=== PATIENT | female | born 1940 | race Hispanic/Latino ===

== ENCOUNTER 2018-04-29 18:28 | Emergency (ER) | payer OTHER, MEDICARE ==
[~2018-04-29 18:28] MED LIST: ACET-2247 PO; AMLO2.5T3 PO; ASPI-1012 PO; ATOR10TA69 PO; CELE200 PO; CHOL100018 PO; FLUT16H NASAL; LEVO25TA54 PO; LOSA50TA25 PO; OXYC5 PO; PREG25 PO
[2018-04-29] MEDS ORDERED: TRAMADOL HCL 50 MG TABLET ONE (19:25)
[2018-04-29 19:46] LABS: BASOPHILS % (AUTO) 0.6 % (0.0-5.0); EOSINOPHILS % (AUTO) 0.3 % (0.0-8.0); HEMATOCRIT 41.4 % (36-48); LYMPHOCYTES % (AUTO) 22.6 % (21.0-51.0); MEAN CORPUSCULAR HEMOGLOBIN 29.6 pg (27.0-33.0); MEAN CORPUSCULAR HGB CONC 33.5 g/dL (32.0-36.0); MEAN CORPUSCULAR VOLUME 88.4 fL (79-99); MONOCYTES % (AUTO) 5.1 % (3.0-13.0); NEUTROPHILS % (AUTO) 71.4 % (40.0-77.0); PLATELET COUNT (AUTO) 205 K/uL (130-400); RED BLOOD CELL COUNT(AUTO) 4.68 MIL/uL (4.00-5.50); RED CELL DISTRIBUTION WIDTH 13.2 % (11.0-15.5); WHITE BLOOD COUNT (AUTO) 6.5 K/uL (4.8-10.8)
[2018-04-29] MEDS ORDERED: ACETAMINOPHEN EXTRA STRENGTH 500 MG TABLET ONE (19:48)
[2018-04-29 19:59] LABS: INR 0.92 (0.85-1.15); PARTIAL THROMBOPLASTIN TIME 26.6 SEC (26.3-35.5); PROTHROMBIN TIME 9.7 SEC (9.6-11.6)
[2018-04-29 20:02] LABS: CREATININE 0.8 mg/dL (0.5-1.5); POTASSIUM 3.8 mmol/L (3.5-5.1)
[2018-04-29 20:09] LABS: ALBUMIN 3.7 g/dL (3.5-5.0); BILIRUBIN,TOTAL 0.3 mg/dL (0.2-1.0); TOTAL PROTEIN, SERUM 7.9 g/dL (6.0-8.3)
== END 2018-04-29 21:57 | disposition home or self-care (01) ==
LOC: EDH 18:28
DX: M79.651 Pain in right thigh (principal); M19.90 Unspecified osteoarthritis, unspecified site; E78.5 Hyperlipidemia, unspecified; I10 Essential (primary) hypertension; Z88.6 Allergy status to analgesic agent; Z90.49 Acquired absence of other specified parts of digestive tract; Z90.710 Acquired absence of both cervix and uterus; Z98.890 Other specified postprocedural states
CPT/HCPCS: 36415; 73552; 80053; 85025; 85378; 85610; 85730; 93971

== ENCOUNTER 2019-10-05 16:45 | Inpatient (IN) | payer OTHER, MEDICARE ==
[~2019-10-05] VITALS: Ht 152.4 cm; Wt 59.0 kg
[~2019-10-05 16:45] MED LIST changes: -AMLO2.5T3 PO; +AMLO2.5T4 PO; -LOSA50TA25 PO; +LOSA50TA64 PO
[2019-10-05 17:48] LABS: BASOPHILS % (AUTO) 0.2 % (0.0-5.0); EOSINOPHILS % (AUTO) 0.1 % (0.0-8.0); HEMATOCRIT 35.2 % (36-48); LYMPHOCYTES % (AUTO) 17.3 % (21.0-51.0); MEAN CORPUSCULAR HEMOGLOBIN 29.2 pg (27.0-33.0); MEAN CORPUSCULAR VOLUME 88.7 fL (79-99); MONOCYTES % (AUTO) 5.6 % (3.0-13.0); NEUTROPHILS % (AUTO) 76.4 % (40.0-77.0); PLATELET COUNT (AUTO) 217 K/uL (130-400); RED BLOOD CELL COUNT(AUTO) 3.97 MIL/uL (4.00-5.50); RED CELL DISTRIBUTION WIDTH 12.9 % (11.0-15.5); WHITE BLOOD COUNT (AUTO) 11.6 K/uL (4.8-10.8)
[2019-10-05 17:58] LABS: CREATININE 0.9 mg/dL (0.5-1.5); POTASSIUM 3.7 mmol/L (3.5-5.1)
[2019-10-05 18:03] LABS: INR 0.88 (0.85-1.15); PARTIAL THROMBOPLASTIN TIME 22.2 SEC (26.3-35.5); PROTHROMBIN TIME 9.5 SEC (9.6-11.6)
[2019-10-05 18:04] LABS: ALBUMIN 3.4 g/dL (3.5-5.0); BILIRUBIN,TOTAL 0.3 mg/dL (0.2-1.0); TOTAL PROTEIN, SERUM 7.1 g/dL (6.0-8.3)
[2019-10-05] MEDS ORDERED: SODIUM CHLORIDE 0.9% 1000ML 1,000 ML IV ONE (18:14)
[2019-10-05] MEDS: SODIUM CHLORIDE 0.9% 1000ML 1,000 ML IV SCH (20:15)
[2019-10-05] MEDS ORDERED: HYDRALAZINE HCL 20 MG/ML VIAL IV PRN (20:15)
[2019-10-05] MEDS ORDERED: ACETAMINOPHEN 325 MG TAB PO PRN (20:15)
[2019-10-05] MEDS ORDERED: ONDANSETRON HCL 4 MG/2 ML VIAL IVP PRN (20:15)
[2019-10-05 20:27] VITALS: BP 147/63
--- NOTE | 2019-10-05 20:30 | NUR ---
RECEIVED PATIENT FROM [facility], REPORT FROM ASHWIN Garcia PT IS A 79 YR OLD FEMALE WITH C/O BLOODY STOOLS X 2 DAYS. STATES IT GOT GRADUALLY WORSE AND DECIDED TO COME TO ER. PT ORIENTED TO ROOM AND ENVIRONMENT, ASSESSMENT DOCUMENTED. CALL BEL PLACED WITHIN REACH. I INSTRUCTED PT TO CALL FOR ASSISTANCE WHEN SHE NEEDS TO GET UP. PT VOICED UNDERSTANDING. TELE MONITORING WITH SINUS 70s. WILL CONT TO MONITOR CLOSELY. Addendum: 10/05/19 at 4751 by COREY VARGAS RN RN Amended: Links added.
[2019-10-06 00:01] VITALS: BP 134/57
[2019-10-06 01:04] LABS: HEMATOCRIT 27.5 % (36-48)
[2019-10-06 04:05] VITALS: BP 130/61
[2019-10-06] MEDS: SODIUM CHLORIDE 0.9% 1000ML 1,000 ML IV SCH ×2 (05:45→21:12)
[2019-10-06 06:37] LABS: HEMATOCRIT 26.3 % (36-48); MEAN CORPUSCULAR HGB CONC 33.5 g/dL (32.0-36.0); MEAN CORPUSCULAR VOLUME 89.8 fL (79-99); PLATELET COUNT (AUTO) 176 K/uL (130-400); RED BLOOD CELL COUNT(AUTO) 2.93 MIL/uL (4.00-5.50); RED CELL DISTRIBUTION WIDTH 13.2 % (11.0-15.5); WHITE BLOOD COUNT (AUTO) 7.4 K/uL (4.8-10.8)
[2019-10-06 06:44] LABS: CREATININE 0.7 mg/dL (0.5-1.5)
--- NOTE | 2019-10-06 07:40 | NUR ---
NOTE AAOX3. DNEIES PAIN OR DISCOMFORT. NO CHEST PAIN NO SOB NO DIZZINESS. SHE HAS BEEN GETTING UP TO BATHROOM WITH ASSISTANCE. SHE CAME IN WITH GI BLEED. BLOOD LEVELS HAVE BEEN DROPPING SINCE ADMISSION AND THERE IS STANDING ORDER TO TRANSFUSE BLOOD IF LEVEL DROPS BELOW 8 OR 7 ON HGB. PATIENT MADE AWARE OF STANDING ORDERS AND SHE IS OKAY RECEIVING BLOOD IF NEEDED. WILL PAGE DR RAUSCH FOR CONSULT THIS AM.
[2019-10-06 07:59] VITALS: BP 133/81
[2019-10-06] MEDS ORDERED: FAMOTIDINE 20MG TAB 20 MG TAB PO SCH (09:00)
--- NOTE | 2019-10-06 09:00 | NUR ---
BLOODY STOOL PATIENT HAD LARGE BURGANDY COLOR STOOL AT THIS TIME WITH SOEM BLOOD CLOTS NOTED. WILL PAGE DR RAUSCH AT THIS TIME.
[2019-10-06] MEDS ORDERED: OCTREOTIDE ACETATE 1,250 MCG in SODIUM CHLORIDE 0.9% 250 ML IV SCH (09:45)
[2019-10-06] MEDS ORDERED: COMPOUND IV REFRIGERATED 1 EACH IVSOLN MISC PRN (10:30)
[2019-10-06] MEDS: PANTOPRAZOLE SODIUM 80 MG in SODIUM CHLORIDE 0.9% 100 ML IV SCH ×2 (10:46→21:13)
[2019-10-06 11:41] VITALS: BP 126/64
--- NOTE | 2019-10-06 12:19 | NUR ---
CM INITIAL ASSESSMENT CM SPOKE WITH PATIENT'S LIFE PARTNER VIA PHONE- STATES HE LIVES WITH PATIENT HAD HAS MPOA AND HANDLES ALL HEALTH CARE AND FINANCIAL DECISIONS. STATES HER MD IS DR. BROWN AND FOLLOW REGULARLY. HOME IS SAFE AND ACCESSIBLE, HAS SHOWER CHAIR, 2 STEP UP INTO THE HOUSE, PATIENT HAD NO DME AND NO PROBLEMS IWHT BERTAYT- HAD TKA BY DR. MAIER AND HAD HH IN THE PAST BUT NO PROVIDER SERVICES AND USES NO DME NOW. DCP IS HOME. PARTNER UPDATED ON PLAN OF CARE Addendum: 10/06/19 at 1225 by YADY BRUCE RN CM Amended: Links added.
[2019-10-06 16:00] VITALS: BP 143/55
[2019-10-06] MEDS ORDERED: PEG 3350/NA SULF,BICARB,CL/KCL 4000 ML SOLN PO SCH (17:00)
[2019-10-06 20:00] VITALS: BP 142/69
[2019-10-07] VITALS (21 sets, daily range): BP systolic 120–159; BP diastolic 47–74
[2019-10-07] MEDS: SODIUM CHLORIDE 0.9% 1000ML 1,000 ML IV SCH (04:59)
[2019-10-07 05:37] LABS: HEMATOCRIT 26.2 % (36-48); MEAN CORPUSCULAR HEMOGLOBIN 29.7 pg (27.0-33.0); MEAN CORPUSCULAR HGB CONC 32.8 g/dL (32.0-36.0); MEAN CORPUSCULAR VOLUME 90.3 fL (79-99); PLATELET COUNT (AUTO) 167 K/uL (130-400); RED CELL DISTRIBUTION WIDTH 13.4 % (11.0-15.5); WHITE BLOOD COUNT (AUTO) 7.2 K/uL (4.8-10.8)
--- NOTE | 2019-10-07 05:37 | NUR ---
BOWEL PREP Pt finished up all the Golytely last night,she 's having clear,yellow output now.
[2019-10-07 05:45] LABS: LYMPHOCYTES % (MANUAL) 10 % (22-44); MAN.DIFF COMMENT-IMPRESSION MANUAL DIFFERENTIAL; MONOCYTES % (MANUAL) 2 % (2-9); PLATELET MORPHOLOGY COMMENT ADEQUATE; SEGMENTED NEUTROPHILS % 88 % (40-70)
[2019-10-07 05:46] LABS: INR 0.94 (0.85-1.15); PARTIAL THROMBOPLASTIN TIME 21.2 SEC (26.3-35.5); PROTHROMBIN TIME 10.2 SEC (9.6-11.6)
[2019-10-07] MEDS ORDERED: PROPOFOL 10 MG/ML 20ML VIAL IV ONE (07:25)
[2019-10-07] MEDS ORDERED: OMEP40CA13 PO (09:07)
--- NOTE | 2019-10-07 14:07 | NUR ---
DISCHARGE INSTRUCTIONS GIVEN TO PATIENT, MADE AWARE OF FOLLOW UP APPOINTMENT WITH DR. RAUSCH IS A VIRTUAL CALL. AWARE OF NEED TO FOLLOW UP WITH PCP IN 2-3 DAYS INSTRUCTED TO CALL FIRST. PATIENT AT THIS TIME AMBULATING IN ROOM, DENIES PAIN, DENIES BLOODY STOOLS. IV'S AND TELE REMOVED. PATIENT WAITING FOR HER NEPHEW TO PICK HER UP
== END 2019-10-07 15:20 | disposition home or self-care (01) | DRG 378 ==
LOC: EDH 16:45 → EDHIP 18:56 → 3AH 19:51
PROVIDERS: ADMIT Internal Medicine Critical Care Medicine; ATTEND Internal Medicine Critical Care Medicine
PROC: 0DJD8ZZ Inspection of Lower Intestinal Tract, Via Natural or Artificial Opening Endoscopic (ICD-10-PCS; principal; 2019-10-07)
DX: K57.31 Diverticulosis of large intestine without perforation or abscess with bleeding (principal); D62 Acute posthemorrhagic anemia; M19.90 Unspecified osteoarthritis, unspecified site; E78.5 Hyperlipidemia, unspecified; I10 Essential (primary) hypertension; E07.9 Disorder of thyroid, unspecified; Z96.651 Presence of right artificial knee joint; Z79.899 Other long term (current) drug therapy; Z88.5 Allergy status to narcotic agent; Z88.8 Allergy status to other drugs, medicaments and biological substances
CPT/HCPCS: 36415; 45378; 71045; 80048; 80053; 82270; 85014; 85018; 85025; 85027; 85610; 85730; 86850; 86900; 86901; 93005; C9113; G0378; J2354; J2704; J7030